=== PATIENT | female | born 2005 | race Caucasian/White ===

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

== ENCOUNTER 2024-04-13 21:26 | Emergency (ER) | payer BC ==
[2024-04-13] MEDS: Take Home: predniSONE 20 MG, 2 Tab Pack PO ONE (21:57)
[2024-04-13] MEDS: Take Home: Albuterol 18 GM Inhaler, 1 Inhaler Pack INH PRN (21:57)
== END 2024-04-13 22:06 | disposition home or self-care (01) ==
LOC: VM.ED 21:26
DX: J20.8 Acute bronchitis due to other specified organisms (principal); Z79.899 Other long term (current) drug therapy
CPT/HCPCS: 99283; A9270-GY; J7512